=== PATIENT | male | born 1995 | race Caucasian/White ===

== ENCOUNTER 2016-09-11 20:28 | Emergency (ER) | payer OTHER ==
[2016-09-11 22:33] VITALS: BP 141/79
[2016-09-11] MEDS ORDERED: Sulfamethoxazole/Trimethoprim 800-160 MG Tab PO ONE (23:36)
[2016-09-11] MEDS ORDERED: Sulfamethoxazole/Trimethoprim 800-160 MG Tab ONE (23:36)
--- NOTE | 2016-09-11 23:36 | EDM.PDOC ---
ED HPI GENERAL MEDICAL PROBLEM - General Chief Complaint: Lower Extremity Injury/Pain Stated Complaint: INGROWN TOENAIL, [id number] Time Seen by Provider: 09/11/16 23:00 Source of Information: Reports: Patient History Limitations: Reports: No Limitations - History of Present Illness INITIAL COMMENTS - FREE TEXT/NARRATIVE: C/O ingrown toenail x 2 weeks. 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 Increased pain and redness with yell ow discharge. Left 1-Hallux Pain Score (Numeric/FACES): 4 - Related Data Allergies Allergy/AdvReac Type Severity Reaction Status Date / Time No Known Allergies Allergy Verified 09/11/16 22:23 Home Meds: Home Meds . [No Known Home Meds] 09/11/16 [History] Past Medical History - Past Health History Medical/Surgical History: Denies Medical/Surgical History - Infectious Disease History Infectious Disease History: Reports: Chicken Pox Social & Family History - Family History Family Medical History: Noncontributory - Tobacco Use Smoking Status *Q: Never Smoker Second Hand Smoke Exposure: Yes - Caffeine Use Caffeine Use: Reports: Coffee, Energy Drinks, Soda, Tea - Recreational Drug Use Recreational Drug Use: No Review of Systems - Review of Systems Review Of Systems: ROS reveals no pertinent complaints other than HPI. Constitutional: Denies: Fever ED EXAM, GENERAL - Physical Exam Exam: See Below Exam Limited By: No Limitations General Appearance: Alert, Mild Distress Ears: Normal External Exam Head: Atraumatic, Normocephalic Neck: Full Range of Motion Respiratory/Chest: No Respiratory Distress Cardiovascular: Normal Peripheral Pulses, Regular Rate, Rhythm Extremities: Redness (left great distal toe) Skin Exam: Warm, Erythema (left great toe medial border swollen yellow pustular discharge ) Course - Vital Signs Last Recorded V/S: Last Vital Signs Temp 97.8 F 09/11/16 22:23 Pulse 55 L 09/11/16 22:23 Resp 16 09/11/16 22:23 BP 141/79 H 09/11/16 22:23 Pulse Ox 99 09/11/16 22:23 - Orders/Labs/Meds Meds: Medications Discontinued Medications Generic Name Dose Route Start Last Admin Trade Name Freq PRN Reason Stop Dose Admin Trimethoprim/Sulfamethoxazole Confirm 09/11/16 23:36 09/12/16 00:03 Septra Ds Administered 09/11/16 23:37 Not Given Dose 2 tab .ROUTE .STK-MED ONE Trimethoprim/Sulfamethoxazole 2 tab 09/11/16 23:36 Septra Ds PO 09/11/16 23:37 .STK-MED ONE Departure - Departure Time of Disposition: 23:33 Disposition: Home, Self-Care 01 Condition: Good Clinical Impression: Ingrown toenail - Discharge Information Instructions: Nail Bed Injury Referrals: PCP,Not In Area [Primary Care Provider] - Forms: ED Department Discharge Additional Instructions: warm soak in soapy water padding to toesil while in boot bactrim ds one twice dialy for one week increase fluid intake while on antibiotic
== END 2016-09-11 23:41 | disposition home or self-care (01) ==
LOC: DL.ED 20:28
DX: L60.0 Ingrowing nail (principal)
CPT/HCPCS: 99283; A9270